=== PATIENT | female | born 1950 | race Caucasian/White ===

== ENCOUNTER → 2016-12-07 | Outpatient (CLI) | payer BC ==
[~2016-12-07] MED LIST: ASPI81TA28 PO; CARV3.122 PO; CLOP1TAB5 PO; LEVO75TA5 PO; [UNRECOGNIZED DRUG - OTHER] PO
[2016-12-07 17:02] LABS: BLOOD UREA NITROGEN 16 mg/dl (7-18); BUN/CREATININE RATIO 11.9 (10-20); CALCIUM 9.2 mg/dl (8.5-10.1); CARBON DIOXIDE 28 mmol/L (21-32); CHLORIDE 106 mmol/L (98-107); GLUCOSE 132 mg/dl (70-99); PHOSPHORUS 3.5 mg/dl (2.5-4.9); SODIUM 138 mmol/L (136-145)
== END | disposition home or self-care (01) ==
LOC: C.LABPBG 10:39
PROVIDERS: ATTEND Internal Medicine Nephrology
DX: N18.3 Chronic kidney disease, stage 3 (moderate) (principal)

== ENCOUNTER → 2017-06-05 | Day surgery (SDC) | payer BC ==
[2017-05-28 09:56] VITALS: BMI 23.0
--- NOTE | 2017-05-28 10:47 | PAT Medication Instructions ---
Service Date May 28, 2017. Current Home Medication List Albuterol Sulfate (Proventil Hfa), 2 PUFFS INH PRN Aspirin (Aspirin Ec), 81 MG PO QAM Richie Carb & Mag Hydrox-Simeth (Rolaids Advanced 1000-200-40 mg), 1-2 TAB PO PRN Carvedilol (Coreg), 3.125 MG PO QAM Levothyroxine Sodium (Levothyroxine Sodium), 1 TAB PO QAM Triamterene/Hctz (Triamterene/Hctz 37.5-25MG), 1 TAB PO QAM [Tylenol], 3 TAB PO PRN Medication Instructions For Your Scheduled Surgery - Check with surgeon for instructions: Aspirin (Aspirin Ec), 81 MG PO QAM - Hold the following medications the morning of surgery: Richie Carb & Mag Hydrox-Simeth (Rolaids Advanced 1000-200-40 mg), 1-2 TAB PO PRN Triamterene/Hctz (Triamterene/Hctz 37.5-25MG), 1 TAB PO QAM - Take the following medications the morning of surgery with a sip of water: [Tylenol], 3 TAB PO PRN (okay to take up to 4 hours prior to surgery if needed) Carvedilol (Coreg), 3.125 MG PO QAM Levothyroxine Sodium (Levothyroxine Sodium), 1 TAB PO QAM Albuterol Sulfate (Proventil Hfa), 2 PUFFS INH PRN (if needed) - Take the following medications as scheduled the night before surgery: [Tylenol], 3 TAB PO PRN(if needed) Richie Carb & Mag Hydrox-Simeth (Rolaids Advanced 1000-200-40 mg), 1-2 TAB PO PRN( if needed) Albuterol Sulfate (Proventil Hfa), 2 PUFFS INH PRN(if needed) If you have any questions please call us at [phone] or [phone] or [phone]
[2017-05-28 11:01] LABS: BASO % 0.7 %; BASO ABS # 0.07 K/uL (0-0.2); EOS % 2.3 %; EOS ABS # 0.22 K/uL (0-0.5); HEMATOCRIT 44.2 % (37-47); HEMOGLOBIN 15.4 g/dL (12.0-16.0); IG# 0.02 K/uL (0.00-0.02); LYMPH % 26.8 %; LYMPH ABS # 2.59 K/uL (1.2-3.4); MEAN CELL VOLUME 87.7 fL (80-100); MEAN CORPUSCULAR HEMOGLOBIN 30.6 pg (25-34); MEAN CORPUSCULAR HGB CONC 34.8 g/dl (32-36); MEAN PLATELET VOLUME 9.3 fL (7.4-10.4); MONO % 7.1 %; MONO ABS # 0.69 K/uL (0.11-0.59); NEUT % 62.9 %; NEUT ABS # 6.09 K/uL (1.4-6.5); PLATELET COUNT 204 K/uL (130-400); RED CELL DISTRIBUTION WIDTH CV 14.7 % (11.5-14.5); RED CELL DISTRIBUTION WIDTH SD 47.3 fL (36.4-46.3); WHITE BLOOD COUNT 9.68 K/uL (4.8-10.8)
--- NOTE | 2017-05-28 11:02 | DIAGNOSTIC IMAGING REPORT ---
CHEST 2 VIEWS ROUTINE CLINICAL HISTORY: PAT operative evaluation COMPARISON STUDY: 11/23/2014 FINDINGS: Mild chronic parenchymal fibrosis. Apical pleural scarring on the right as well as left unchanged. No new or interval finding. IMPRESSION: Chronic interstitial change. No acute process. The above report was generated using voice recognition software. It may contain grammatical, syntax or spelling errors. Electronically signed by: Jeovanny Tripathi M.D. 05/28/2017 11:01 AM Dictated Date/Time: 05/28/2017 11:00 AM
[2017-05-28 11:13] LABS: INR 0.9 (0.9-1.1); PTT PATIENT 26.2 SECONDS (21.0-31.0)
[2017-05-28 11:45] LABS: CALCIUM 9.5 mg/dl (8.5-10.1); CREATININE 1.37 mg/dl (0.60-1.20); POTASSIUM 3.7 mmol/L (3.5-5.1)
[~2017-06-05] VITALS: Ht 154.9 cm; Wt 56.5 kg
[~2017-06-05] MED LIST changes: +ALBUAER INH; +ATROPINE SULFATE 0.1 MG/ML 5ML SYR IV PRN; +BUPIVACAINE/EPINEPHRINE 0.5% MPF 1:200,000 30 ML VIAL ONE; +CAL1CHW4 PO; +CEFAZOLIN SOD 1 GM VIAL ONE; +CLINDAMYCIN 600 MG/54 ML D5W 54 ML IV SCH; +CLOPIDOGREL BISULFATE 300 MG TAB PO STA; +DEXAMETHASONE SOD INJ 4 MG/ML VIAL ONE; +EpHEDrine SULFATE 50MG/5ML SYR ONE; +EpHEDrine SULFATE INJ 50 MG/ML AMP IV PRN; +FENTANYL CITRATE INJ 50 MCG/1 ML 2 ML VIAL IV PRN; +FENTANYL CITRATE INJ 50 MCG/1 ML 2 ML VIAL ONE; +GELATIN SPONGE SZ 100 ONE; +GLYCOPYRROLATE INJ 0.2 MG/ML VIAL ONE; +HEPARIN SOD (PORCINE) 1000 UNIT/ML 10 ML VIAL ONE; +HEPARIN SOD (PORCINE) 5000 UNIT/ML 1 ML VIAL ONE; +IODIXANOL (VISIPAQUE) 270 MG/ML 150ML IV ONE; +LACTATED RINGER'S 1000ML 1,000 ML IV SCH; -LEVO75TA5 PO; +LEVO88TA3 PO; +LIDOCAINE HCL 1% 20 ML VIAL INJ ONE; +LIDOCAINE HCL 1% 20 ML VIAL ONE; +LIDOCAINE HCL 2% 2 ML VIAL (20MG/ML) ONE; +MIDAZOLAM HCL 1 MG/ML 2ML VIAL ONE; +NEOSTIGMINE METHYLSULFATE 5 MG/5 ML SYR ONE; +ONDANSETRON INJ 2 MG/ML 2 ML VIAL IV PRN; +ONDANSETRON INJ 2 MG/ML 2 ML VIAL ONE; +OXYCODONE/ACETAMINOPHEN 5-325 TAB PO PRN; +PAPAVERINE HCL INJ 30 MG/ML 2 ML VIAL ONE; +PROPOFOL IV EMULSION 10 MG/ML 20 ML VIAL IV ONE; +PROTAMINE SULFATE 10 MG/ML 5 ML VIAL IV ONE; +ROCURONIUM BROMIDE 10 MG/ML 5 ML VIAL IV ONE; +SODIUM BICARBONATE 8.4% INJ 100 MEQ in SODIUM CHLORIDE 0.45% 1000ML 1,000 ML IV SCH; +SODIUM CHLORIDE 0.9% 1000ML 1,000 ML IV SCH; +THROMBIN FOR SOLN 20000 UNIT KIT ONE; +TRIATAB3 PO; +TYLENOL PO; -[UNRECOGNIZED DRUG - OTHER] PO
[2017-06-05 06:01] VITALS: BP_SYST 111; BP_SYST 137; BP_DIAS 70; BP_DIAS 77; PULSE 87; TEMP 37.1; O2SAT 96; Ht 154.9 cm; Wt 56.5 kg
--- NOTE | 2017-06-05 06:02 | History and Physical ---
History & Physical Date of Service Jun 05, 2017. History & Physical CC: Left leg pain HPI: The patient states that she has always had discomfort in her left hip. However, in the last 6 months or so, she has noticed a significant worsening in the discomfort in her left hip with ambulation. She states that it begins in her posterolateral hip and extends into her thigh and calf with ambulation. She states that she is probably able to walk 50 feet or so before having to stop. She states that this is significantly different than how she was feeling when she was here a year ago. At that time, she only had some mild joint pain in her left hip. She denies other complaints at this time including headaches, fevers, chills, dizziness, chest pain, shortness of breath, abdominal pain, rest pain, nonhealing wounds or ulcers or other complaints and she denies any claudication symptoms in her right leg at this time. She underwent ultrasound evaluation of her carotid arteries prior to today's appointment, which demonstrates a patent right carotid endarterectomy site without evidence of restenosis, no evidence of stenosis of her left internal carotid and antegrade flow in her vertebrals and normal flow in her subclavians. Her aortoiliac ultrasound, which was done to evaluate her iliac stents, demonstrates a patent right common iliac artery stent and an occluded left common iliac artery stent and monophasic flow distal to that lesion. This left iliac stent occlusion is a new finding. THE PATIENT'S ALLERGIES INCLUDE PENICILLIN, SULFA AND TETRACYCLINE MEDICATIONS. Her home medications are reconciled on the chart. The patient's past medical history is positive for carotid artery disease, hypertension, hypothyroidism and a neurological disorder, Parkinson's disease versus polyneuropathy, aortoiliac stenosis. The patient's past surgical history is positive for a right carotid endarterectomy, angiography with BL iliac stenting, as well as a hysterectomy. Her family history is positive for diabetes in a brother, a sister with heart disease and hypertension in her father. Her social history is positive for significant tobacco use. The patient states that she smokes 2 packs every day. The patient denies significant alcohol or any drug use. Her review of systems was negative for fatigue, fevers, sweats, weight loss, abnormal moles or rashes, vision changes or photophobia, ear pain, sinus problems or sore throats, cough, shortness of breath, hemoptysis or wheezing, chest pain, palpitations, edema or syncope, nausea, vomiting, diarrhea or constipation, dysuria, headaches, dizziness, numbness or seizures. On physical exam, the patient's vital signs were as follows: A blood pressure of 102/76 with a heart rate of 76 and a weight of approximately 116 pounds. Constitutional: In general, the patient is a chronically ill-appearing, thin elderly female in no acute distress. She ambulates well without assistance. She is active, alert and oriented x4 with a normal recent and remote memory. Her head is normocephalic and atraumatic. Her eyes are EOMI. Her ENT exam demonstrates no significant hearing loss, rhinorrhea or pharyngeal erythema. Her neck is supple and nontender with a midline trachea without masses or crepitus. The patient's right-sided carotid endarterectomy scar is noted. The patient's lung exam demonstrates no dyspnea. On auscultation, her breath sounds are decreased throughout with faint scattered rhonchi. Her cardiovascular exam demonstrates a nondisplaced apical impulse with a regular rate and rhythm. without murmurs, rubs, thrills or gallops. The pulses are normal in her carotid, brachial and radial area. The patient's right femoral is +2, and posterior tibial and dorsalis pedis pulses are nonpalpable. The patient's left femoral is +1, posterior tibial and dorsalis pedis pulses are nonpalpable. The patient's abdomen is soft and nontender with normal active bowel sounds in all four quadrants without guarding or rebound, without masses and there is no CVA or flank tenderness. Her musculoskeletal exam demonstrates normal tone and strength for age. Her bilateral upper extremities reveal clubbing, but no cyanosis, edema, varicosities or ulcers. BL feet demonstrate cool, mottled toes and forefoot, with delayed cap refill. No open ulcerations. Toes are tender to palpation. The patient's bilateral lower extremities reveal no edema, varicosities, ulcers, or gangrene. Neurologically, the patient demonstrates a slow gait with normal station with grossly intact cranial nerves and grossly intact sensation. Assessment and plan: Imp: Iliac artery occlusion, left Plan: Pt admitted for aortogram with possible iliac intervention and possible cross fem bypass. She understands the risks options and benefits and agrees to the procedure.
[2017-06-05 06:34] LABS: CALCIUM 9.5 mg/dl (8.5-10.1); CREATININE 1.31 mg/dl (0.60-1.20); POTASSIUM 3.2 mmol/L (3.5-5.1)
--- NOTE | 2017-06-05 07:28 | History & Physical Bridge Note ---
H&P Re-Evaluation Bridge Note: I have examined the patient, reviewed the History & Physical and in the interval since the performance of the History & Physical I have noted the following changes of clinical significance: No changes noted
--- NOTE | 2017-06-05 09:01 | [facility] Post Operative Brief Note ---
Immediate Operative Summary Operative Date Jun 05, 2017. Pre-Operative Diagnosis Left Iliac Artery Occlusion Post-Operative Diagnosis Same Procedure(s) Performed Aortogram Ultrasound Localization of Bilateral Femoral Arteries Percutaneous Transluminal Angioplasty and Stenting Bilateral Iliac Artery Mechanical Closure of Bilateral Femoral Arteries Surgeon Sommer Resource Conservationist Surgeon(s) None Estimated Blood Loss 20 Findings left common iliac occlusion Specimens None Anesthesia Local with sedation Complication(s) None Disposition
--- NOTE | 2017-06-05 09:14 | [facility] Operative Report ---
Operative Report Operative Date Jun 05, 2017. Pre-Operative Diagnosis Left Iliac Artery Occlusion Post-Operative Diagnosis Same Procedure(s) Performed Aortogram Ultrasound Localization of Bilateral Femoral Arteries Percutaneous Transluminal Angioplasty and Stenting Bilateral Iliac Artery Mechanical Closure of Bilateral Femoral Arteries Surgeon Sommer Marine Rigger Surgeon(s) None Estimated Blood Loss 20 Findings left common iliac artery occlusion Specimens None Anesthesia Local with sedation Complication(s) None Disposition Recovery Room / PACU Indications This is a 66-year-old female who had the kissing stents done of her common iliac arteries in the past. She's been having difficulty walking over the last 6 months and was found to have an occlusion the left common iliac artery stent. Arteriography with possible intervention was recommended. We also recommended that if we cannot get through the lesion that a cross femoral bypass and be done. I have discussed the risks options and benefits of the procedure with the patient. The patient understands the risks options and benefits and agrees to the procedure. Description of Procedure The patient was taken to the angiogram suite and placed in the supine position. Both groins are prepped and draped in a sterile manner. Using ultrasound both common femoral arteries were punctured and cannulated with 5 Upper Sorbian sheaths. A 035 Glidewire and pigtail was passed up through the right groin. Arteriography was performed. This showed the right renal artery be occluded. This does contain coils. Left radial artery is widely patent. There is mild atherosclerotic changes in the proximal aorta below the renals. The aortic stent and right iliac stents are widely patent. The left common iliac stent is totally occluded with reconstitution of the iliac at the bifurcation. Using a stiffened Glidewire the left iliac was traversed. It went through fairly easy. A Kumpe catheter was then inserted over the wire. Hand injection was performed after wire was removed. This showed the catheter to be true lumen within the aorta. We then replaced a stiffened Glidewire. We exchanged the sheaths to a 7 Fr on the left and a 6 Fr on the right. We placed an 035 into the pigtail and removed it. We then inserted a 9 x 29 Omnilink in the right side a 9 x 59 Omnilink on the left. We raised the kissing part slightly higher than the old stents. The stents were deployed without difficulty. Balloons were removed. We then did a hand injection which showed still a slight narrowing in the distal portion of the left common iliac stent. There is also occlusion in the distal common iliac artery beyond the old stent. We then extended the left iliac stent with another 8 x 39. This was taken down right to the bifurcation of the common iliac artery on the left side. We then redilated the left stent with an 8 mm balloon to nominal pressure. Hand injection that point showed the left common iliac stent to be widely patent without stenosis. We then reinserted the pigtail on the right side. Angiography was done which showed both iliac stents are widely patent. External iliacs also widely patent on the left side down through the common femoral artery bifurcation. The external iliac on the left was slightly smaller in its entirety than on the right. Both groins were then closed using the Star closure device. Adequate hemostasis was noted. Sterile dressings were applied to the wound and the patient left the angiogram suite in good condition and tolerated the procedure well. I attest to the content of the Intraoperative Record and any orders documented therein. Any exceptions are noted below.
--- NOTE | 2017-06-05 09:23 | Anesthesiology Progress Note ---
Anesthesia Post Op Note Date & Time Jun 05, 2017 at 09:23 Vital Signs Pain Intensity: 0 Vital Signs Past 12 Hours Date Time Temp Pulse Resp B/P (MAP) Pulse Ox O2 Delivery O2 Flow Rate FiO2 06/05/17 06:01 37.1 87 18 137/77 (97) 96 Room Air 111/70 (84) Notes Mental Status: alert / awake / arousable, participated in evaluation Pt Amnestic to Procedure: Yes Nausea / Vomiting: adequately controlled Pain: adequately controlled Airway Patency, RR, SpO2: stable & adequate BP & HR: stable & adequate Hydration State: stable & adequate Anesthetic Complications: no major complications apparent
--- NOTE | 2017-06-05 09:30 | Discharge Instructions ---
Discharge Instructions Date of Service Jun 05, 2017. Visit Reason for Visit: Iliac Of Occlusion With Claudication Discharge Discharge Diagnosis / Problem: Left iliac artery occlusion Discharge Goals Goal(s): Therapeutic intervention Activity Recommendations Activity Limitations: per Instructions/Follow-up section Anesthesia . Post Anesthesia Instructions: If you have had General Anesthesia or IV Sedation: * Do not drive today. * Resume driving when surgeon permits. * Do not make important decisions or sign legal documents today. * Call surgeon for: 1. Temperature elevations greater than 101 degrees F. 2. Uncontrollable pain. 3. Excessive bleeding. 4. Persistent nausea and vomiting. 5. Medication intolerance (nausea, vomiting or rash). * For nausea and vomiting use only clear liquids such as: tea, soda, bouillon until nausea subsides, then gradually increase diet as tolerated. * If you have any concerns or questions, call your surgeon's office. If physician is unavailable and it is an emergency, call 911 or go to the nearest emergency room. . Instructions / Follow-Up Instructions / Follow-Up Call [phone] to schedule a follow up appointment if one not already scheduled. SPECIAL CARE INSTRUCTIONS: Medications: * Continue to take your medications as directed. If you have been given a prescription for Plavix, please fill it immediately and take as directed. Incision Care: * Your puncture site may have some bruising and minor swelling for about one week. * You will have a small dressing covering your puncture site. You may remove the dressing after 24 hours and shower. You may let the warm soapy water run over it, but be sure to dry the puncture site well and keep it dry. * DO NOT IMMERSE THE INCISION IN A TUB/POOL/etc. UNTIL HEALED. * Puncture sites should be kept covered with a band-aid until it begins to heal. Restrictions: * Depending on whether you leg or arm was punctured to access the arteries, you will be required to lay flat, hold your arm still, or both, for about 4 hours after the procedure to prevent bleeding. * Limit your activity for the first 48 hours. You may walk and go up and down steps. Avoid excessive bending or movement at the puncture site. Possible Complications: * Excessive Swelling - after blood flow is improved you may notice increased swelling in the lower legs. This is a normal response. This usually depends on the amount of blockages in the leg, how long they have been there prior to your procedure and how much blood flow was restored. Elevating your legs will help to improve this. Please notify our office ([phone] ) if the swelling does not go away after lying in bed overnight. * Infection/Drainage/Bleeding - Drainage or bleeding from the puncture site should be minimal. If you have excessive bleeding or drainage, call our office ([phone]) right away. * Pain - You may experience some mild pain or soreness at your puncture site. If your pain does not improve, please contact our office ([phone]). Call your doctor and seek emergent treatment if you develop: * Temperature above 101 degrees * Any fever or chills * Any redness or purulent drainage from the puncture site * Any new dusky/blue colored toes or feet with coolness or sharp or aching pain. SKIN IRRITATION: * You may experience some redness and/or swelling in the area where radiation was administered. If any skin irritation occurs, please contact your family physician. FOLLOW UP VISIT: Keep any scheduled doctor appointments. Diet Recommendations Recommended Home Diet: resume previous diet Procedures Procedures Performed: Aortogram Ultrasound Localization of Bilateral Femoral Arteries Percutaneous Transluminal Angioplasty and Stenting Bilateral Iliac Artery Mechanical Closure of Bilateral Femoral Arteries Pending Studies Studies pending at discharge: no Medical Emergencies . Who to Call and When: Medical Emergencies: If at any time you feel your situation is an emergency, please call 911 immediately. . Non-Emergent Contact Non-Emergency issues call your: Surgeon . . "Provider Documentation" section prepared by Deejay Novoa. .
[2017-06-05 09:50] VITALS: BP 113/63; PULSE 69; TEMP 36.4; O2SAT 97
[2017-06-05 10:20] VITALS: BP 111/66; PULSE 84; O2SAT 95
[2017-06-05 10:50] VITALS: BP 106/57; PULSE 73; O2SAT 96
[2017-06-05 11:50] VITALS: BP 112/68; PULSE 90; O2SAT 96
[2017-06-05 12:50] VITALS: BP 95/54; PULSE 80; TEMP 36.4; O2SAT 93
== END | disposition home or self-care (01) ==
LOC: C.ACU 05:07
PROVIDERS: ATTEND Surgery Vascular Surgery
DX: I74.5 Embolism and thrombosis of iliac artery (principal); J44.9 Chronic obstructive pulmonary disease, unspecified; I12.9 Hypertensive chronic kidney disease with stage 1 through stage 4 chronic kidney disease, or unspecified chronic kidney disease; N18.3 Chronic kidney disease, stage 3 (moderate); I25.10 Atherosclerotic heart disease of native coronary artery without angina pectoris; E03.9 Hypothyroidism, unspecified; G20 Parkinson's disease; Z98.890 Other specified postprocedural states; F17.200 Nicotine dependence, unspecified, uncomplicated; Z90.710 Acquired absence of both cervix and uterus; Z88.2 Allergy status to sulfonamides; Z88.0 Allergy status to penicillin; Z88.1 Allergy status to other antibiotic agents; Z83.3 Family history of diabetes mellitus; Z82.49 Family history of ischemic heart disease and other diseases of the circulatory system